=== PATIENT | male | born 1950 | race Asian ===

== ENCOUNTER 2017-04-21 14:06 | Day surgery (SDC) | payer OTHER ==
[2017-04-20 08:39] VITALS: BMI 29.0
[2017-04-21] MEDS ORDERED: PROPOFOL 20 ML ONE ×5 (15:07)
[2017-04-21 15:47] VITALS: TEMP 97.5
[2017-04-21 16:28] VITALS: BP 138/74; PULSE 59
--- NOTE | 2017-04-25 14:42 | PATH ---
Surgical Pathology Report Patient Name: ODETTE FORTUNE [facility]. Rec. #: [id number] /Age/Gender: 1950 (Age: 66) / M Account: [id number] Location: [facility]-ENDOSCOPY Taken: 04/21/2017 Received: 04/24/2017 Reported: 04/25/2017 Physicians: Singh Walker M.D. Specimen(s) Received A: BX POLYP CECUM B: POLYP TRANSVERSE COLON C: POLYP SIGMOID Clinical History Diverticular disease of the colon Redundant colon, diverticulosis, polyp cecum, polyps transverse colon, polyp sigmoid Final Diagnosis A. CECUM, POLYP, BIOPSY: COLONIC MUCOSA SHOWING BENIGN/REACTIVE LYMPHOID AGGREGATE. B. TRANSVERSE COLON, POLYPS, POLYPECTOMY: TUBULAR ADENOMAS (2). HYPERPLASTIC POLYPS (2). C. SIGMOID, POLYP, POLYPECTOMY: HYPERPLASTIC POLYP. Electronically Signed Jamila Woodson M.D. Gross Description A. Received in formalin, labeled "biopsy polyp cecum" is a manjarrez, irregular portion of soft tissue measuring 0.3 cm. in greatest dimension. The specimen is submitted in toto in one cassette. B. Received in formalin, labeled "polyps transverse colon" are 4 manjarrez, irregular portions of soft tissue ranging from 0.2-0.3 cm. in greatest dimension. The specimens are submitted in toto in one cassette. C. Received in formalin, labeled "polyp sigmoid" are 2 manjarrez, irregular portions of soft tissue averaging 0.2 cm. in greatest dimension. The specimens are submitted in toto in one cassette. 04/24/201704/24/2017
== END 2017-04-21 17:10 | disposition home or self-care (01) ==
LOC: JASU-ENDO 14:06
PROVIDERS: ATTEND Internal Medicine Gastroenterology
PROC: 0DBH8ZX Excision of Cecum, Via Natural or Artificial Opening Endoscopic, Diagnostic (ICD-10-PCS; 2017-04-21)
PROC: 0DBN8ZX Excision of Sigmoid Colon, Via Natural or Artificial Opening Endoscopic, Diagnostic (ICD-10-PCS; 2017-04-21)
PROC: 0DBL8ZX Excision of Transverse Colon, Via Natural or Artificial Opening Endoscopic, Diagnostic (ICD-10-PCS; principal; 2017-04-21 15:00)
DX: Z12.11 Encounter for screening for malignant neoplasm of colon (principal); Z86.010 Personal history of colon polyps; D12.0 Benign neoplasm of cecum; D12.5 Benign neoplasm of sigmoid colon; D12.3 Benign neoplasm of transverse colon; K57.30 Diverticulosis of large intestine without perforation or abscess without bleeding; K64.8 Other hemorrhoids; K63.89 Other specified diseases of intestine
CPT/HCPCS: 88305-TC